=== PATIENT | female | born 1975 | race Caucasian/White ===

== ENCOUNTER 2017-06-03 05:26 | Inpatient (IN) | payer OTHER ==
[~2017-06-03] VITALS: Ht 154.9 cm; Wt 39.1 kg
[~2017-06-03 05:26] MED LIST: ALPR-411 PO; CITA20TA4 PO; CYM/30 PO; ESTR1.252 PO; HYDR-3714 PO; METO-157 PO; MIRT15TA2 PO; OMEP40CA41 PO; ROPI4TAB3 PO; ZOLP10TA6 PO
[2017-06-03] MEDS ORDERED: NICOTINE 21 MG/24 HR TDSY ONE (06:15)
[2017-06-03 06:19] LABS: BASO % 0.3 %; BASO ABS # 0.03 K/uL (0-0.2); EOS % 0.2 %; EOS ABS # 0.02 K/uL (0-0.5); HEMOGLOBIN 11.2 g/dL (12.0-16.0); IG# 0.02 K/uL (0.00-0.02); MEAN CELL VOLUME 88.9 fL (80-100); MEAN CORPUSCULAR HEMOGLOBIN 30.2 pg (25-34); MEAN CORPUSCULAR HGB CONC 33.9 g/dl (32-36); MEAN PLATELET VOLUME 8.9 fL (7.4-10.4); MONO % 11.7 %; NEUT % 70.6 %; NEUT ABS # 6.65 K/uL (1.4-6.5); PLATELET COUNT 222 K/uL (130-400); RED CELL DISTRIBUTION WIDTH CV 12.8 % (11.5-14.5); RED CELL DISTRIBUTION WIDTH SD 40.9 fL (36.4-46.3); WHITE BLOOD COUNT 9.42 K/uL (4.8-10.8)
[2017-06-03 06:36] LABS: ALBUMIN 3.4 gm/dl (3.4-5.0); ALT/SGPT 35 U/L (12-78); AST/SGOT 54 U/L (15-37); BLOOD UREA NITROGEN 16 mg/dl (7-18); CALCIUM 8.1 mg/dl (8.5-10.1); CARBON DIOXIDE 29 mmol/L (21-32); CREATININE 0.77 mg/dl (0.60-1.20); GLUCOSE 107 mg/dl (70-99); POTASSIUM 3.6 mmol/L (3.5-5.1); SODIUM 139 mmol/L (136-145)
[2017-06-03 06:47] LABS: ALKALINE PHOSPHATASE 74 U/L (45-117); TOTAL PROTEIN 6.4 gm/dl (6.4-8.2)
--- NOTE | 2017-06-03 06:50 | EMERGENCY ROOM VISIT NOTE ---
History Report prepared by Maximino: Yuni Arreola Under the Supervision of: Dr. Fatuma Jimenez D.O. First contact with patient: 05:35 Chief Complaint: MENTAL HEALTH EVALUATION Stated Complaint: MENTAL HEALTH History of Present Illness The patient is a 42 year old female who presents to the Emergency Room for a mental health evaluation. Per [facility], the patient took all her Hydrocodone and then smoked bath salts. They report that the patient has been making suicidal statements to her for a while, but they have also been talking about her coming to the hospital to get help. [facility] states that the patient left tonight and told her that she was "going to do it." They report that he was unsure if this meant commit suicide or come to the ED. They state that the followed the patient in his car and saw that she was speeding and driving erratically. [facility] states that this is when the called them. They reports that the patient has made statements about driving off a harjinder. They report that they went to the house for the petition and the patient was home. They state that the patient was stomping on the floor and punching sun, but did not want to talk to them. They report that the states that the patient has not slept for 7 days and that sometimes she will talk to herself. The patient states that she and her have been having difficulties communicating. She states that this past weekend was his birthday weekend and he avoided her all weekend. She reports that she smokes cigarettes, occasionally drinks alcohol, occasionally smokes marijuana, and states that she recently started using bath salts. She states that she last smoked bath salts 11 hours ago. The patient reports that she used to use cocaine and has tried meth before. She reports that she has made suicidal statements in the past, but would never act on them because of her kids. She states that she leaves the house to breathe. The patient states that she only took her Vicodin and Xanax. The patient complains of her voice changing. The patient denies fever, chills, recent injury, and recent changes in medications. The patient notes that she did get the flu shot. Patient's is petitioner on 302. Source of History: patient, other ([facility]) Onset: prior to arrival Position: other (global) Quality: other (mental) Timing: other (episode) Associated Symptoms: No fevers, No chills Review of Systems See HPI for pertinent positives & negatives. A total of 10 systems reviewed and were otherwise negative. Past Medical & Surgical Medical Problems: (1) Depression Family History Patient reports no known family medical history. Social History Smoking Status: Never Smoker Alcohol Use: occasionally Drug Use: cocaine, marijuana, other (bath salts) Marital Status: Housing Status: lives with family Occupation Status: unemployed Current/Historical Medications Scheduled Citalopram Hydrobromide (Citalopram Hydrobromide), 20 MG PO DAILY Duloxetine HCl (Cymbalta), 30 MG PO DAILY Estrogens, Conjugated (Premarin), 1.25 MG PO DAILY Metoclopramide (Reglan), 10 MG PO BID Mirtazapine Soltab (Remeron Soltab), 15 MG PO DAILY Omeprazole (Prilosec), 40 MG PO HS Ropinirole (Requip), 4 MG PO HS Scheduled PRN Alprazolam (Xanax), 0.5 MG PO BID PRN for Anxiety/Agitation Hydrocodon/Acetaminophen 7.5MG/300MG (Vicodin Es (7.5MG/300MG)), 1 TAB PO QID PRN for Pain Zolpidem Tartrate (Zolpidem Tartrate), 10 MG PO HS PRN for Sleep Allergies Coded Allergies: Penicillins (Verified Allergy, Severe, SOB, HIVES, RASH, 06/03/17) Physical Exam Vital Signs Date Time Temp Pulse Resp B/P (MAP) Pulse Ox O2 Delivery O2 Flow Rate FiO2 06/03/17 07:33 87 20 101/76 98 Room Air 06/03/17 05:43 36.7 119 20 83/75 93 Room Air Physical Exam GENERAL: alert, anxious appearing, well nourished, no distress, non-toxic, thin EYE EXAM: normal conjunctiva, PERRL and EOM's grossly intact OROPHARYNX: no exudate, no erythema, lips, buccal mucosa, and tongue normal and mucous membranes are moist NECK: supple, no nuchal rigidity, no adenopathy, non-tender LUNGS: Clear to auscultation. Normal chest wall mechanics HEART: no murmurs, S1 normal and S2 normal ABDOMEN: abdomen soft, non-tender, normo-active bowel sounds, no masses, no rebound or guarding. BACK: Back is symmetrical on inspection and there is no deformity, no midline tenderness, no CVA tenderness. SKIN: no rashes and no bruising UPPER EXTREMITIES: upper extremities are grossly normal. LOWER EXTREMITIES: No pitting edema. NEURO EXAM: Normal sensorium, cranial nerves II-XII grossly intact, normal speech, no gross weakness of arms, no gross weakness of legs. PSYCH: Pressured speech, flight of ideas, passive SI. Medical Decision & Procedures Laboratory Results 06/03/17 06:08 Red Blood Count 3.71, Mean Corpuscular Volume 88.9, Mean Corpuscular Hemoglobin 30.2, Mean Corpuscular Hemoglobin Concent 33.9, Mean Platelet Volume 8.9, Neutrophils (%) (Auto) 70.6, Lymphocytes (%) (Auto) 17.0, Monocytes (%) (Auto) 11.7, Eosinophils (%) (Auto) 0.2, Basophils (%) (Auto) 0.3, Neutrophils # (Auto ) 6.65, Lymphocytes # (Auto) 1.60, Monocytes # (Auto) 1.10, Eosinophils # (Auto ) 0.02, Basophils # (Auto) 0.03 06/03/17 06:08 Test 06/03/17 06:08 06/03/17 06:38 White Blood Count 9.42 K/uL (4.8-10.8) Red Blood Count 3.71 M/uL (4.2-5.4) Hemoglobin 11.2 g/dL (12.0-16.0) Hematocrit 33.0 % (37-47) Mean Corpuscular Volume 88.9 fL (80-100) Mean Corpuscular Hemoglobin 30.2 pg (25-34) Mean Corpuscular Hemoglobin Concent 33.9 g/dl (32-36) Platelet Count 222 K/uL (130-400) Mean Platelet Volume 8.9 fL (7.4-10.4) Neutrophils (%) (Auto) 70.6 % Lymphocytes (%) (Auto) 17.0 % Monocytes (%) (Auto) 11.7 % Eosinophils (%) (Auto) 0.2 % Basophils (%) (Auto) 0.3 % Neutrophils # (Auto) 6.65 K/uL (1.4-6.5) Lymphocytes # (Auto) 1.60 K/uL (1.2-3.4) Monocytes # (Auto) 1.10 K/uL (0.11-0.59) Eosinophils # (Auto) 0.02 K/uL (0-0.5) Basophils # (Auto) 0.03 K/uL (0-0.2) RDW Standard Deviation 40.9 fL (36.4-46.3) RDW Coefficient of Variation 12.8 % (11.5-14.5) Immature Granulocyte % (Auto) 0.2 % Immature Granulocyte # (Auto) 0.02 K/uL (0.00-0.02) Anion Gap 5.0 mmol/L (3-11) Estimated GFR () 108.8 Estimated GFR (Non- 93.9 BUN/Creatinine Ratio 21.0 (10-20) Calcium Level 8.1 mg/dl (8.5-10.1) Total Bilirubin 0.7 mg/dl (0.2-1) Direct Bilirubin 0.2 mg/dl (0-0.2) Aspartate Amino Transf (AST/SGOT) 54 U/L (15-37) Alanine Aminotransferase (ALT/SGPT) 35 U/L (12-78) Alkaline Phosphatase 74 U/L (45-117) Total Protein 6.4 gm/dl (6.4-8.2) Albumin 3.4 gm/dl (3.4-5.0) Thyroid Stimulating Hormone (TSH) 1.830 uIu/ml (0.300-4.500) Salicylates Level < 1.7 mg/dl (2.8-20) Acetaminophen Level < 2 ug/ml (10-30) Ethyl Alcohol mg/dL < 3.0 mg/dl (0-3) Urine Color YELLOW Urine Appearance CLEAR (CLEAR) Urine pH 5.0 (4.5-7.5) Urine Specific [place] 1.027 (1.000-1.030) Urine Protein NEG (NEG) Urine Glucose (UA) NEG (NEG) Urine Ketones TRACE (NEG) Urine Occult Blood TRACE (NEG) Urine Nitrite NEG (NEG) Urine Bilirubin NEG (NEG) Urine Urobilinogen NEG (NEG) Urine Leukocyte Esterase NEG (NEG) Urine WBC (Auto) 1-5 /hpf (0-5) Urine RBC (Auto) 0-4 /hpf (0-4) Urine Hyaline Casts (Auto) 1-5 /lpf (0-5) Urine Epithelial Cells (Auto) >30 /lpf (0-5) Urine Bacteria (Auto) NEG (NEG) Urine Opiates Screen NEG (NEG) Urine Methadone, Qualitative NEG (NEG) Urine Barbiturates NEG (NEG) Urine Phencyclidine (PCP) Level NEG (NEG) Ur Amphetamine/Methamphetamine NEG (NEG) MDMA (Ecstasy) Screen POS (NEG) Urine Benzodiazepines Screen POS (NEG) Urine Cocaine Metabolite NEG (NEG) Urine Marijuana (THC) POS (NEG) Laboratory results per my review. Medications Administered Medications (Trade) Dose Ordered Sig/Kya Route Start Time Stop Time Status Last Admin Dose Admin Nicotine (Nicoderm Cq 21MG Patch) 1 patch QAM TD 06/03/17 09:00 07/03/17 08:59 06/03/17 06:17 1 PATCH ED Course 0547: The patient was evaluated in room A7. A complete history and physical exam was performed. 0900: Ordered Nicotine 1 patch TD. 0800: Patient awaiting evaluation by psychiatric therapeutic case manager. Patient's vital signs are improved, and patient eating a breakfast tray at bedside. Patient signed out to Dr. Gerber to follow-up therapeutic case manager evaluation and recommendations. Medical Decision The patient is a 42 year old female who presents to the Emergency Room for a mental health evaluation. Differential diagnosis: Etiologies such as mood disorder, infection, hypoglycemia, electrolyte abnormalities, cardiac sources, intracerebral event, toxicologic, neurologic, as well as others were entertained. Medication Reconcilliation Current Medication List: was personally reviewed by me Blood Pressure Screening Patient's blood pressure: Normal blood pressure Blood pressure disposition: Did not require urgent referral Impression Primary Impression: Anxiety Additional Impressions: Depression Substance abuse Scribe Attestation The scribe's documentation has been prepared under my direction and personally reviewed by me in its entirety. I confirm that the note above accurately reflects all work, treatment, procedures, and medical decision making performed by me. Departure Information Referrals Neel Cobb D.O. (PCP) Patient Instructions My [facility] Problem Qualifiers Additional Impressions: Depression Depression Type: unspecified Qualified Codes: F32.9 - Major depressive disorder, single episode, unspecified
[2017-06-03] MEDS ORDERED: NICOTINE 21 MG/24 HR TDSY TD SCH (09:00)
[2017-06-03] MEDS ORDERED: BISMUTH SUBSALICYLATE PER ML OMNICELL CHARGE PO PRN (12:30)
[2017-06-03] MEDS ORDERED: SODIUM CHLORIDE 0.65% NA SOLN 45 ML (OCEAN) PRN (12:30)
[2017-06-03] MEDS ORDERED: hydrOXYzine HCL 25 MG TAB PO PRN (12:30)
[2017-06-03] MEDS ORDERED: ALUMINUM/MAGNESIUM SUSP 30 ML UDC PO PRN (12:30)
[2017-06-03] MEDS ORDERED: MAGNESIUM HYDROXIDE SUSP 30 ML UDC PO PRN (12:30)
[2017-06-03] MEDS ORDERED: LORAZEPAM 1 MG TAB SL STA (12:38)
[2017-06-03 13:52] VITALS: O2SAT 99
--- NOTE | 2017-06-03 14:32 | EMERGENCY ROOM VISIT NOTE ---
ED Visit Note First contact with patient: 08:20 I received this patient in signout at the change of shift from Dr. Jimenez, pending psychiatric evaluation. The patient was evaluated by the psychiatric disease case manager rn. After discussion with the patient's family, and is clear that she is impulsive and has made multiple suicidal statements. They are concerned about and active furtherance [place] night threatening to drive over this way. The patient's 302 was signed by me as I feel she is impulsive and a danger to herself. At this time she is agitated and likely withdrawing from some illicit stimulant. She has been observed for multiple hours in the emergency department and I do feel that she is clear from substance induced delirium. She is having difficulty with scattered thinking. 3 S. nurse liaison evaluated the patient and she was accepted under Dr. Sloan to their care.
[2017-06-03 14:56] VITALS: BP 121/77; PULSE 84; TEMP 36.7; BMI 16.3
[2017-06-03 18:21] VITALS: BP 119/76; PULSE 96; TEMP 37.5
[2017-06-03] MEDS: ACETAMINOPHEN 325 MG TAB PO PRN (19:35)
[2017-06-03 20:36] VITALS: BP 120/74; PULSE 85
[2017-06-03] MEDS ORDERED: NURSING VERBAL MED ORDER ONE (21:15)
[2017-06-03] MEDS ORDERED: DIPHENOXYLATE/ATROPINE 2.5/0.025MG TAB PO PRN (21:45)
[2017-06-03] MEDS ORDERED: CLONIDINE HCL 0.1 MG TAB PO PRN (21:45)
[2017-06-03] MEDS ORDERED: LORAZEPAM 1 MG TAB PO PRN (21:45)
[2017-06-03] MEDS: PANTOprazole SOD 40 MG TAB PO SCH (21:51)
[2017-06-03] MEDS: ROPINIROLE HCL 1 MG TAB PO SCH (21:51)
[2017-06-03 22:15] VITALS: BP 125/79; PULSE 85; TEMP 36.9
[2017-06-04 06:58] VITALS: BP_SYST 126; BP_SYST 129; BP_DIAS 86; BP_DIAS 92; PULSE 107; PULSE 93; TEMP 37.1
[2017-06-04] MEDS: CLONIDINE HCL 0.1 MG TAB PO SCH ×4 (08:25→20:00)
[2017-06-04] MEDS: DULOXETINE HCL 60 MG CAP PO SCH (08:25)
[2017-06-04] MEDS: ESTROGENS, CONJUGATED 0.625 MG TAB PO SCH (08:26)
[2017-06-04 08:49] VITALS: BP 108/73; PULSE 81; TEMP 37.1
[2017-06-04] MEDS ORDERED: DULOXETINE (CYMBALTA) 30 MG CAP PO SCH (09:00)
[2017-06-04 09:35] VITALS: BP 108/73; PULSE 107; PULSE 81; TEMP 37.1; Ht 154.9 cm; Wt 39.1 kg
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
[2017-06-04 12:03] VITALS: BP 113/76; PULSE 88; TEMP 36.9
[2017-06-04 16:00] VITALS: BP 101/70; PULSE 93; TEMP 37.1
[2017-06-04 20:00] VITALS: BP 99/67; PULSE 85; TEMP 36.9
[2017-06-04] MEDS: ROPINIROLE HCL 1 MG TAB PO SCH (21:39)
[2017-06-04] MEDS: PANTOprazole SOD 40 MG TAB PO SCH (21:39)
[2017-06-05 08:02] VITALS: BP 124/86; PULSE 80; TEMP 37.1
[2017-06-05] MEDS: DULOXETINE HCL 60 MG CAP PO SCH (08:16)
[2017-06-05] MEDS: CLONIDINE HCL 0.1 MG TAB PO SCH ×4 (08:16→20:00)
[2017-06-05] MEDS: ESTROGENS, CONJUGATED 0.625 MG TAB PO SCH (08:16)
[2017-06-05] MEDS: ACETAMINOPHEN 325 MG TAB PO PRN (08:21)
[2017-06-05] MEDS: NICOTINE 21 MG/24 HR TDSY TD SCH (09:31)
[2017-06-05] MEDS ORDERED: ONDANSETRON 4MG OD TAB PO PRN (10:45)
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
[2017-06-05 12:49] VITALS: BP 117/85; PULSE 98; TEMP 36.8
[2017-06-05 16:00] VITALS: BP_SYST 97; BP_DIAS 61; BP_DIAS 65; PULSE 68; TEMP 37
[2017-06-05 20:00] VITALS: BP 98/61; PULSE 88; TEMP 36.8
[2017-06-05 20:03] VITALS: BP 98/61; PULSE 107; PULSE 88; TEMP 36.8
[2017-06-05] MEDS: ROPINIROLE HCL 1 MG TAB PO SCH (21:06)
[2017-06-05] MEDS: PANTOprazole SOD 40 MG TAB PO SCH (21:06)
[2017-06-06 07:14] VITALS: BP_SYST 101; BP_SYST 88; BP_DIAS 56; BP_DIAS 68; PULSE 60; PULSE 80; TEMP 37
[2017-06-06] MEDS: ESTROGENS, CONJUGATED 0.625 MG TAB PO SCH (09:44)
[2017-06-06] MEDS: NICOTINE 21 MG/24 HR TDSY TD SCH (09:45)
[2017-06-06] MEDS: DULOXETINE HCL 60 MG CAP PO SCH (09:45)
[2017-06-06] MEDS: ACETAMINOPHEN 325 MG TAB PO PRN (10:02)
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
[2017-06-06] MEDS ORDERED: BENZOCAINE 20% (ORAJEL) 11.9 GM TUBE MT PRN (13:15)
[2017-06-06] MEDS: PANTOprazole SOD 40 MG TAB PO SCH (21:21)
[2017-06-06] MEDS: ROPINIROLE HCL 1 MG TAB PO SCH (21:21)
[2017-06-07 06:44] VITALS: BP_SYST 100; BP_SYST 103; BP_DIAS 61; BP_DIAS 69; PULSE 66; PULSE 85; TEMP 36.9
[2017-06-07] MEDS: NICOTINE 21 MG/24 HR TDSY TD SCH (09:10)
[2017-06-07] MEDS: DULOXETINE HCL 60 MG CAP PO SCH (09:10)
[2017-06-07] MEDS: ESTROGENS, CONJUGATED 0.625 MG TAB PO SCH (09:11)
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
[2017-06-07] MEDS: ACETAMINOPHEN 325 MG TAB PO PRN (13:31)
[2017-06-07 16:26] VITALS: BP 112/74; PULSE 72; TEMP 37
[2017-06-07] MEDS: PANTOprazole SOD 40 MG TAB PO SCH (21:16)
[2017-06-07] MEDS: ROPINIROLE HCL 1 MG TAB PO SCH (21:16)
[2017-06-07] MEDS: hydrOXYzine HCL 25 MG TAB PO PRN ×2 (21:17→22:10)
[2017-06-08 06:30] VITALS: BP_SYST 112; BP_SYST 129; BP_DIAS 75; BP_DIAS 98; PULSE 54; PULSE 62; TEMP 36.4
[2017-06-08] MEDS: ESTROGENS, CONJUGATED 0.625 MG TAB PO SCH (08:34)
[2017-06-08] MEDS: DULOXETINE HCL 60 MG CAP PO SCH (08:34)
[2017-06-08] MEDS: NICOTINE 21 MG/24 HR TDSY TD SCH (08:38)
[2017-06-08] MEDS ORDERED: ATR25 PO (09:54)
[2017-06-08] MEDS ORDERED: NICO21DI4 TD (09:54)
[2017-06-08] MEDS ORDERED: CYM60 PO (09:54)
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
== END 2017-06-08 11:25 | disposition home or self-care (01) | DRG 881 ==
LOC: EDBD 05:26 → C.EDA 05:27 → C.MHU 12:24
PROVIDERS: ADMIT Psychiatry & Neurology Psychiatry; ATTEND Psychiatry & Neurology Psychiatry
DX: F32.9 Major depressive disorder, single episode, unspecified (principal); R45.851 Suicidal ideations; Z68.1 Body mass index [BMI] 19.9 or less, adult; F41.9 Anxiety disorder, unspecified; R63.6 Underweight; K21.9 Gastro-esophageal reflux disease without esophagitis; G25.81 Restless legs syndrome; F16.10 Hallucinogen abuse, uncomplicated; F14.10 Cocaine abuse, uncomplicated; F11.10 Opioid abuse, uncomplicated; F15.10 Other stimulant abuse, uncomplicated; F17.210 Nicotine dependence, cigarettes, uncomplicated; Z79.899 Other long term (current) drug therapy; Z88.0 Allergy status to penicillin; Z81.8 Family history of other mental and behavioral disorders; Z81.1 Family history of alcohol abuse and dependence